=== PATIENT | female | born 1960 | race Caucasian/White ===

== ENCOUNTER 2018-04-06 11:59 | Emergency (ER) | payer OTHER ==
[~2018-04-06] VITALS: Ht 167.6 cm; Wt 54.5 kg
[2018-04-06 13:29] LABS: HEMATOCRIT 39.1 % (37.0-47.0); IMMATURE GRANULOCYTES 0.3 % (0.0-5.0); MEAN CORPUSCULAR HGB 30.1 pG CALC (26.0-32.0); NEUT# 6.97 thou/uL (2.00-7.15); RED BLOOD COUNT 4.29 mill/uL (4.20-5.60); RED CELL DISTRI WIDTH 13.9 % (11.5-15.5)
[2018-04-06 13:35] LABS: HEMOGLOBIN 12.9 g/dl (12.0-16.0); MEAN CELL VOLUME 91.1 fL CALC (80.0-100.0)
[2018-04-06 13:49] LABS: ALBUMIN 4.5 g/dL (3.2-5.0); BILIRUBIN, TOTAL 0.4 mg/dL (0.0-1.4); CREATININE 1.2 mg/dL (0.5-1.0); POTASSIUM 4.8 mmol/l (3.5-5.1); TOTAL PROTEIN 7.6 g/dL (6.3-8.2)
[2018-04-06] MEDS ORDERED: TOPROL XL50 MG PO (13:52)
[2018-04-06 14:32] LABS: URINE BILIRUBIN - DIPSTICK NEGATIVE (NEGATIVE); URINE BLOOD DIPSTICK NEGATIVE (NEGATIVE); URINE COLOR YELLOW; URINE GLUCOSE - DIPSTICK NEGATIVE (NEGATIVE); URINE KETONE NEGATIVE (NEGATIVE); URINE LEUK ESTERASE NEGATIVE (NEGATIVE); URINE NITRITE - DIPSTICK NEGATIVE (Negative); URINE PH 5.5 (4.5-8.0); URINE PROTEIN - DIPSTICK NEGATIVE (NEG-TRACE); URINE SPECIFIC GRAVITY >=1.030; URINE UROBILINOGEN - DIPSTICK 0.2 E.U./dL (0.2)
[2018-04-06 15:00] LABS: URINE CLARITY CLEAR
[2018-04-06] MEDS ORDERED: VOLTAREN - GENE75 MG PO (15:17)
[2018-04-06] MEDS ORDERED: TRAMADOL HCL50 MG PO (15:17)
[2018-04-06 15:28] VITALS: BP 156/70
== END 2018-04-06 15:40 | disposition home or self-care (01) | DRG 74 ==
LOC: ED 11:59
PROVIDERS: Family Medicine
DX: G58.8 Other specified mononeuropathies (principal); I10 Essential (primary) hypertension; Z90.5 Acquired absence of kidney; Z85.528 Personal history of other malignant neoplasm of kidney; Z98.1 Arthrodesis status